=== PATIENT | female | born 1955 | race Caucasian/White ===

== ENCOUNTER 2020-05-15 11:31 | Emergency (ER) | payer BC, SELFPAY ==
[2020-05-15 12:05] VITALS: BP 140/82; PULSE 77; RESP 16; TEMP 36.8; O2SAT 97; BMI 47.9
--- NOTE | 2020-05-15 12:07 | ED_ITS ---
HPI - Extremity Problem General: Chief complaint: Extremity Problem,Nontraumatic Stated complaint: Rt leg pain Time Seen by Provider: 05/15/20 12:06 Source: patient Mode of arrival: ambulatory Limitations: no limitations History of Present Illness: HPI Narrative: Patient is a 64-year-old female here for complaints of right lower extremity pain over the past 5 days. She was initially seen at [facility] ED 2 days ago and states she had blood work and x-rays of her knee, lower leg, and ankle performed which were negative. They discharged her home with hydrocodone and muscle relaxers. She states these are not helping with her pain. She states she has pain from the right side of her back into her right hip and down the posterior aspect of her leg all the way down to her foot and ankle. She states she has had issues with her sciatica previously. She feels like her extremity is swollen and is concerned for a blood clot. She also tells me it feels like I am not getting enough blood flow . She has not noticed any color or temperature changes to her extremity. MD Complaint: extremity pain Onset (ago): day(s) Pain Consistency: constant Location: right and lower extremity Relieving factors: nothing Exacerbating factors: walking Associated symptoms: Reports no associated symptoms; Deny chest pain or fever(s) Review of Systems Const: Denies: fever(s), chills, fatigue or malaise Card: Denies: chest pain Resp: Denies: dyspnea : Denies: flank pain or dysuria Musc: Reports: back pain, extremity pain, extremity swelling and joint pain (hip, knee, ankle); Denies: joint swelling, joint redness or joint warmth Neuro: Reports: difficulty walking (secondary to pain); Denies: numbness in extremities, weakness in extremities, sensory changes, dizziness, confusion or Slurred speech present Physical Exam Const: COMMON NORMALS: no acute distress, patient oriented x3, no limitations and alert NUTRITIONAL APPEARANCE: obese morbidly obese ORIENTATION/CO NSCIOUSNESS: Yes awake, Yes oriented to person, Yes oriented to place and Yes oriented to time : COMMON NORMALS: Yes no CVA tenderness BLADDER/KIDNEY EXAM: Yes no CVA tenderness Back/Pelvis: COMMON NORMALS: no CVA tenderness, thoracic and lumbar spine normal to inspection, no thoracic nor lumbar tenderness and thoraco-lumbar ROM normal THORACIC SPINE/UPPER BACK: Yes normal to inspection and Yes thoracic ROM normal LUMBAR SPINE/LOWER BACK: Yes normal to inspection and Yes lumbar ROM normal PELVIS: Yes sciatic notch tenderness SACROILIAC JOINTS: Yes SI joint(s) abnormal SI joint details: tender to palpation Extremity: COMMON NORMALS: normal to inspection and full ROM GENERAL: Yes normal exam except as noted OTHER: I do not appreciate any swelling to R LE. She does have calf pain with palpation but a negative Presley's. DP/PT pulses are equal bilaterally. No difference in color or temp between extremities. Sensory intact. Neuro: COMMON NORMALS: patient oriented x3, moves all extremities, no focal motor deficits, no sensory deficits noted and gait normal SENSORIUM/ORIENTATION: Yes alert, Yes oriented to person, Yes oriented to place and Yes oriented to time Skin: COMMON NORMALS: no rashes or lesions noted GENERAL SKIN EXAM: no rashes or lesions noted Course Vital Signs: Vital signs: Vital Signs Temperature 98.3 F 05/15/20 12:05 Pulse Rate 77 05/15/20 12:05 Respiratory Rate 16 05/15/20 12:05 Blood Pressure 140/82 05/15/20 12:05 Pulse Oximetry 97 05/15/20 12:15 MDM - Extremity (Nontraumatic) MDM Narrative: Medical decision making narrative: Patient report having x-rays performed at [facility] days ago that were normal. Patient underwent ultrasound imaging for venous and arterial flow here which were normal. Based on patient's history and physical exam I feel this is most likely right-sided sciatica. Patient will be placed on steroids. She takes naproxen daily already. I will also place her on gabapentin. Recommend she follow-up with primary care for further management. Imaging Data^: US venous and arterial : My impression: Per Chapin Hunter wind energy technician-no DVT, no arterial occlusion, no abnormalities noted Discharge Plan Discharge Patient Disposition: Home Clinical Impression: Right sided sciatica Condition: Stable Prescriptions: New prednisone 10 mg tablet 10 mg PO DAILY 10 Days Qty: 41 RF: 0 gabapentin 300 mg capsule 300 mg PO DAILY Qty: 60 RF: 0 No Action Celebrex 200 mg Capsule 200 mg PO BID@08,19 RF: 0 cyclobenzaprine 10 mg Tablet 10 mg PO TID PRN (Reason: Spasms) RF: 0 lisinopril-hydrochlorothiazide 20-12.5 mg Tablet 1 tab PO BID@,19 RF: 0 hydrocodone-acetaminophen 5-325 mg tablet 1 tab PO DAILY PRN (Reason: Pain) RF: 0 allopurinol 100 mg Tablet 100 mg PO DAILY@08 RF: 0 tramadol 50 mg Tablet 50 mg PO BID PRN (Reason: Pain) RF: 0 dicyclomine 20 mg Tablet 20 mg PO QID RF: 0 simvastatin 20 mg Tablet 20 mg PO DAILY@1900 RF: 0 orphenadrine citrate 100 mg Tablet Extended Release 100 mg PO BID PRN (Reason: Spasms) RF: 0 omeprazole 20 mg Capsule,Delayed Release(Dr/Ec) 20 mg PO DAILY@08 RF: 0 sertraline 50 mg tablet 50 mg PO DAILY@08 RF: 0 naproxen 500 mg Tablet 500 mg PO BID@ RF: 0 diclofenac sodium 1 % Gel 4 g TOPICAL BID RF: 0 Discharge Orders: Discharge ED (Routine); Ordered 05/15/20 Ordered By: Felicity Vergara Patient Instructions: Sciatica (ED), Opioid Safety Activity Restrictions/Additional Instructions: [facility] is committed to fighting the nationwide opiate epidemic. We are providing ALL patients with information regarding opiate safety. If you received opiate pain medication during your stay or if you received a prescription for opiate pain medication-please review this handout. If not, you may disregard. Thank you. As we discussed please follow-up with your primary care provider for further management. Coding Level of Care Code ED [id number] Java Developer for Francisco Herrera
[2020-05-15 12:15] VITALS: O2SAT 97
--- NOTE | 2020-05-15 12:23 | USCV_ITS ---
Luis Alberto Lane Age: 64 Gender: F : 1955 Exam Date: 05/15/2020 12:51 Ordering Phys: Felicity Vergara Technologist: Chapin Hunter Exam Location: [facility] [place]_ Indication: RT LEG PAIN RIGHT LEFT Pressure (mmHg) Waveform Pressure (mmHg) Waveform 1.00 Ankle/Brachial Index 1.00 FINDINGS RT BR 140 LT 140 RT ENGINEERING FACULTY 140 RT [id number] LT ENGINEERING FACULTY 140 CONCLUSIONS Normal bilateral TEVIN's. Dr. Ivanna Jacobson DO (Electronically Signed) Final Date: 15 May 2020 14:44 S
--- NOTE | 2020-05-15 12:23 | USCV_ITS ---
Luis Alberto Lane Age: 64 Gender: F : 1955 Exam Date: 05/15/2020 12:47 Ordering Phys: Felicity Vergara Technologist: Chapin Hunter Exam Location: [facility] [place]_ Indication: RT LEG PAIN PROCEDURES: Venous duplex imaging was performed in only the right lower extremity. The following venous structures were evaluated: common femoral vein, profunda vein, proximal portion of the greater saphenous vein, superficial femoral vein, and the popliteal vein. In addition, the posterior tibial and peroneal trunk were evaluated. FINDINGS: Normal 2-D Doppler and augmentation and compressibility throughout the lower extremity venous structures. Additional imaging through the proximal calf veins also reveals no thrombus. Limited evaluation of the greater saphenous vein is patent with no thrombus. CONCLUSIONS No DVT right lower extremity. Dr. Ivanna Jacobson DO (Electronically Signed) Final Date: 15 May 2020 14:45 S
== END 2020-05-15 14:01 | disposition home or self-care (01) ==
PROVIDERS: Emergency Provider Physician Assistant
DX: M54.31 Sciatica, right side (principal)
CPT/HCPCS: 93922; 93971; 99284

== ENCOUNTER 2022-03-27 09:06 | Emergency (ER) | payer OTHER, SELFPAY ==
--- NOTE | 2022-03-27 09:11 | XRR_ITS ---
PROCEDURE INFORMATION: Exam: XR Left Knee Exam date and time: 03/27/2022 9:17 AM Age: 66 years old Clinical indication: Pain; Knee; Left TECHNIQUE: Imaging protocol: Radiologic exam of the Left knee. Views: 3 views. COMPARISON: CR XR knee LT 3V* [id number] 08/24/2017 1:46 PM FINDINGS: Bones/joints: The medial joint space is severely narrowed with prominent osteophyte formation. The lateral joint space is severely narrowed with prominent osteophyte formation. Prominent osteoarthritic changes in the patellofemoral compartment. No fracture identified. Soft tissues: No knee joint effusion is present. XR/XR knee LT 3V* [id number] IMPRESSION: Severe osteoarthritic changes worsened compared to prior exam.
[2022-03-27 09:12] VITALS: BP 122/64; PULSE 78; RESP 18; TEMP 37; O2SAT 92; BMI 47.2
--- NOTE | 2022-03-27 09:36 | ED_ITS ---
HPI - Extremity Problem General: Chief complaint: Extremity Injury, Lower Stated complaint: LEFT KNEE PAIN Time Seen by Provider: 03/27/22 09:07 Source: patient Mode of arrival: ambulatory History of Present Illness: 66-year-old female presents emergency room complaining of left knee pain. She has had knee pain for what she describes as decades. Last few months it is worst. She is prescribed hydrocodone for knee pain there is been no new trauma but has been progressively worsening particularly the last couple of days she cannot recall any falls trauma twisting etc. its is becoming increasingly painful in addition to the hydrocodone she uses topical diclofenac and Celebrex. She has seen orthopedics in the past because of her obesity they have declined to do a knee arthroplasty. MD Complaint: extremity swelling and joint pain Onset (ago): year(s) Pain Consistency: constant Location: left Quality: sharp Radiation: none Relieving factors: nothing Exacerbating factors: nothing Associated symptoms: Reports arthralgias; Deny chest pain, fever(s), myalgias, rash or short of breath Review of Systems Const: Denies: fever(s), chills, fatigue or malaise ENMT: Denies: throat pain, ear or mastoid pain, nasal discharge or nasal congestion Card: Denies: chest pain or palpitations Resp: Denies: dyspnea, productive cough or non-productive cough GI: Denies: abdominal pain, nausea, vomiting, hematemesis, coffee ground emesis, diarrhea, constipation, bloating, hematochezia or melena : Denies: flank pain, difficulty voiding, dysuria, urinary frequency or urinary urgency Musc: Reports: joint pain and joint stiffness Skin/Breast: Denies: rash [facility] ED PFSH: Medical History Osteoarthritis of left knee Physical Exam Const: GENERAL APPEARANCE: cooperative and comfortable ORIENTATION/CONSCIOUSNESS: Yes awake, Yes oriented to person, Yes oriented to place and Yes oriented to time HENMT: COMMON NORMALS: normocephalic and atraumatic HEAD & SCALP: normocephalic and atraumatic Resp: COMMON NORMALS: normal respiratory effort, No retractions, No use of accessory muscles and clear to auscultation bilaterally AUSCULTATION: clear to auscultation bilaterally Cardio: COMMON NORMALS: regular rate, regular rhythm and No murmurs present (Cardio) RATE: regular rate RHYTHM: regular rhythm GI: COMMON NORMALS: Soft to palpation and No hepatosplenomegaly present AUSCULTATION: Yes normoactive bowel sounds PALPATION: Yes Soft to palpation, No Tenderness to palpation present (GI), No Guarding due to palpation present (GI) and Yes No hepatosplenomegaly present Extremity: COMMON NORMALS: normal to inspection, capillary refill normal, no clubbing, cyanosis or edema, no calf tenderness and no pedal edema Neuro: SENSORIUM/ORIENTATION: Yes oriented to person, Yes oriented to place and Yes oriented to time Skin: COMMON NORMALS: no rashes or lesions noted GENERAL SKIN EXAM: no rashes or lesions noted Course Vital Signs: Vital signs: Vital Signs Temperature 98.6 F 03/27/22 09:12 Pulse Rate 91 03/27/22 11:02 Respiratory Rate 18 03/27/22 11:02 Blood Pressure 121/68 03/27/22 09:47 Pulse Oximetry 99 03/27/22 11:02 Oxygen Delivery Me thod 03/27/22 09:47 MDM - Extremity (Nontraumatic) Medical Decision Making Review of x-ray patient has severe deformity from chronic osteoarthritis. She has had this for a number years but is worsened significantly or tibial plateau is eroded tremendously. She has no acute fractures at this time however. Reviewing her x-ray there is no doubt her leg would hurt. However because of her body mass index is not much of a candidate for knee arthroplasty which she has been told before when she sees orthopedics. For now recommend anti- inflammatories steroids and follow-up with Ortho possible referral to dietitian for assistance with weight loss. Medical Records I reviewed the patient's medical records. Lab Data I reviewed the patient's lab results. Radiology Impressions Knee X-Ray 03/27/22 09:11 IMPRESSION: Severe osteoarthritic changes worsened compared to prior exam. Discharge Plan Discharge Patient Disposition: Home Clinical Impression: Osteoarthritis of left knee Condition: Stable Prescriptions: No Action Celebrex 200 mg Capsule 200 mg PO BID@, cyclobenzaprine 10 mg Tablet 10 mg PO TID PRN (Reason: Spasms) lisinopril-hydrochlorothiazide 20-12.5 mg Tablet 1 tab PO BID@ hydrocodone-acetaminophen 5-325 mg tablet 1 tab PO DAILY PRN (Reason: Pain) allopurinol 100 mg Tablet 100 mg PO DAILY@08 tramadol 50 mg Tablet 50 mg PO BID PRN (Reason: Pain) dicyclomine 20 mg Tablet 20 mg PO QID simvastatin 20 mg Tablet 20 mg PO DAILY@1900 orphenadrine citrate 100 mg Tablet Extended Release 100 mg PO BID PRN (Reason: Spasms) omeprazole 20 mg Capsule,Delayed Release(Dr/Ec) 20 mg PO DAILY@08 sertraline 50 mg tablet 50 mg PO DAILY@08 naproxen 500 mg Tablet 500 mg PO BID@08,19 diclofenac sodium 1 % Gel 4 g TOPICAL BID gabapentin 300 mg capsule 300 mg PO DAILY Qty: 60 0RF Rx Instructions: Take 300mg PO QD x 1 day, then 300mg PO BID x 1 day, then 300mg PO TID thereafter Discharge Orders: Discharge ED (Routine); Ordered 03/27/22 Ordered By: Antonio Lam Other Ambulatory Orders: DME: Wheelchair (Order) Location: None Selected Ordered By: Antonio Lam Referrals: Cachorro Montano [Primary Care Provider] - Discharge Activity: Limit activity as instructed Patient Instructions: Opioid Safety, Pain Management Activity Restrictions/Additional Instructions: You are seen today for left knee pain. You have severe arthritis of the left knee. Case management make arrangements for you to follow-up with orthopedics as an outpatient. Coding Level of Care Code ED Creative Manager for Francisco Fwmariya Exam Detailed
[2022-03-27 09:47] VITALS: BP 121/68; PULSE 75; RESP 16; O2SAT 93
[2022-03-27] MEDS: morphine 4 mg/mL SDV 1 mL IM (09:53)
[2022-03-27 11:02] VITALS: PULSE 91; RESP 18; O2SAT 99
--- NOTE | 2022-03-29 10:37 | DCPLANNER ---
Addendum entered by Elizabeth Cristobal 05/04/22 17:55: This appointment was cancelled Addendum entered by Elizabeth Cristobal 04/01/22 16:53: Patient has a follow up appointment scheduled for April at 11:[address] Maurice at ortho. Clinic will call patient with appointment information. Original Note: manager retail store had message to schedule a follow up appointment for patient with ortho. manager retail store sent patients information to the front office staff at ortho. Patients information will be printed and reviewed. Clinic will call patient with appointment information.
== END 2022-03-27 11:02 | disposition home or self-care (01) ==
PROVIDERS: Emergency Provider Family Medicine; PCP Family Medicine
DX: M17.12 Unilateral primary osteoarthritis, left knee (principal)
CPT/HCPCS: 73562; 96372; 99284; J2270